=== PATIENT | male | born 1990 | race African-American/Black ===

== ENCOUNTER 2024-06-18 13:33 | Emergency (ER) | payer OTHER ==
[~2024-06-18] VITALS: Ht 172.7 cm; Wt 72.6 kg
[2024-06-18] MEDS: ALBUTEROL (0.083%) 2.5MG/3ML NEB HHN STA (14:19)
[2024-06-18 14:20] VITALS: PULSE 80; RESP 18; O2SAT 98
[2024-06-18] MEDS: IPRATROPIUM BROMIDE (0.02%) 0.5MG/2.5ML NEB HHN STA (14:20)
[2024-06-18] MEDS: PREDNISONE 20MG TABLET PO STA (14:36)
[2024-06-18] MEDS: MAGNESIUM 2 G PREMIX 50 ML IV ONE (14:36)
[2024-06-18] MEDS ORDERED: P20 MT (15:19)
[2024-06-18] MEDS ORDERED: ALBU18HF2 IH (15:20)
[2024-06-18 15:31] VITALS: BP 135/91; PULSE 72; RESP 18; TEMP 36.55848; O2SAT 98
[2024-06-18 16:00] LABS: BASOPHILS % 0.6 % (0.0-2.0); EOSINOPHILS % 1.2 % (0.0-5.0); HEMOGLOBIN. 16.2 g/dL (14.0-18.0); LYMPHOCYTES % 21.9 % (20.0-50.0); MEAN CORPUSCULAR HEMOGLOBIN 32.2 pg (28.0-32.0); MEAN CORPUSCULAR HGB CONC 34.3 g/dL (31.0-37.0); MEAN CORPUSCULAR VOLUME 93.6 fL (80.0-94.0); MEAN PLATELET VOLUME 6.7 fl (7.4-10.4); MONOCYTES % 8.1 % (2.0-8.0); NEUTROPHILS % 68.2 % (40.0-76.0); PLATELET 356 x1000/uL (130-400); RED BLOOD CELL COUNT 5.02 mill/uL (4.7-6.1); RED CELL DISTRIBUTION WIDTH 12.8 % (11.6-14.6); WHITE BLOOD COUNT 10.2 x1000/uL (4.5-11.0)
[2024-06-18 16:04] LABS: CHLORIDE 107 mEq/L (98-107); POTASSIUM 3.4 mEq/L (3.5-5.1); SODIUM 137 mEq/L (136-145)
[2024-06-18 16:05] LABS: CALCIUM 10.1 mg/dL (8.7-10.4); CARBON DIOXIDE 25 mEq/L (21-32)
[2024-06-18 16:10] LABS: GLUCOSE 93 mg/dL (70-105); UREA NITROGEN BLOOD 6 mg/dL (9-23)
[2024-06-18 16:18] LABS: TROPONIN I HIGH SENSITIVITY < 4 ng/L (3.0-53)
== END 2024-06-18 15:47 | disposition home or self-care (01) ==
LOC: ER 13:33
DX: J45.901 Unspecified asthma with (acute) exacerbation (principal); R05.9 Cough, unspecified
CPT/HCPCS: 80048; 85025; 84484; 36415; 71045; 94640; 93005; 96365; 99285; J7512; J3475; Z7610 ×3